=== PATIENT | female | born 1980 | race Caucasian/White ===

== ENCOUNTER → 2018-08-30 15:16 | Outpatient (CLI) | payer OTHER, SELFPAY ==
[2018-08-30 15:52] LABS: Add Manual Diff / Slide Review NO; Basophils Absolute Auto 100 /uL (0-100); Eosinophils Absolute Auto 100 /uL (0-450); Eosinophils Percent Auto 1.1 % (2-4); Hematocrit 35.4 % (41-53); Hemoglobin 11.4 g/dL (13.5-17.5); Lymphocytes Absolute Auto 2500 /uL (1100-4500); Lymphocytes Percent Auto 22.5 % (25-40); Mean Corpuscular HGB Conc 32.3 % (30-36); Mean Corpuscular Hemoglobin 25.6 PG (26-34); Mean Corpuscular Volume 79.3 fL (80-100); Monocytes Absolute Auto 300 /uL (0-900); Monocytes Percent Auto 2.6 % (3-14); Neutrophils Absolute Auto 8100 /uL (1500-7000); Neutrophils Percent Auto 72.8 % (50-75); Platelet Count 309 X10^3/uL (150-400); Red Blood Cell Count 4.47 X10^6/uL (4.5-5.9); Red Cell Distribution Width 14.5 % (11.6-14.8); White Blood Cell Count 11.2 X10^3/uL (4.5-11.0)
== END ==
PROVIDERS: PCP Family Medicine; Visit Provider Specialist
DX: N92.0 Excessive and frequent menstruation with regular cycle (principal)
CPT/HCPCS: 36415; 85025

== ENCOUNTER 2018-09-06 08:12 | Day surgery (SDC) | payer OTHER, SELFPAY ==
[2018-09-05 07:30] VITALS: BMI 41.1
[2018-09-06] VITALS (9 sets, daily range): BP systolic 113–165; BP diastolic 58–89; PULSE 43–60; RESP 11–16; TEMP 36.2–36.6; O2SAT 94–99; BMI 40.5
--- NOTE | 2018-09-06 08:45 | PM.PREOP ---
Pre-operative Note Interval Note History & Physical reviewed/Exam performed by Physician: Yes Changes to H&P: No H&P completed within 30 days and has changed as indicated here:: see outpt note 08/30/18
[2018-09-06] MEDS: LACTATED RINGERS 1,000 ML 42 ML IV (08:47)
--- NOTE | 2018-09-06 09:05 | SUR.OPER ---
Lithotomy on padded OR bed, head on pillow, arms secured on padded arm boards at <90 degrees abduction. Legs secured in padded yellow fins stirrups.
--- NOTE | 2018-09-06 09:37 | PM.OP.1 ---
Operative Date/Time/Diagnoses Date of procedure: 09/06/18 Time of procedure: 09:37 Post-op diagnosis: same Procedure & Clinicians Procedure: NovaSure ablation Same procedure as scheduled: Yes Indications: Menorrhagia Surgeon: Candace Bee Click Yes if Unassisted: Yes Anesthesia Type: General Operative Notes Findings: Normal exam under anesthesia Closure Type: not applicable Specimen(s): none sent Estimated Blood Loss (mL): 5 Blood products transfused: none Procedure in detail: Patient was brought to the operating room where she was underwent general anesthesia was placed in the [facility] [place]. Pulsatile stockings were in place and functional. Antibiotics were not indicated. Warming was with blankets. A check system was reviewed with the staff in the room. A single-tooth tenaculum was placed on the anterior lip of the cervix. The cervix was dilated to a #6 Hegar dilator. The NovaSure sound was used to determine the length of the uterus which was over 6 cm. This was set on the NovaSure device. The device was placed in the uterus and the width determined to be 4.5 cm. The length and width were entered into the NovaSure machine. The plunger was pushed to the cervix to effect a good vacuum seal. This was documented by the machine. Cauterization was done with a total power of 149 and 80 seconds. The NovaSure array was pulled back into the device and then the device removed. Patient tolerated the procedure well. Counts of instruments and sponges were correct. Patient went to recovery room in good condition. Complications: none Condition: stable Disposition: same day surgery Plan for aftercare: Home when awake and stable
--- NOTE | 2018-09-06 09:40 | P.OP_ITS ---
Operative Date/Time/Diagnoses Date of procedure: 09/06/18 Time of procedure: 09:37 Post-op diagnosis: same Procedure & Clinicians Procedure: NovaSure ablation Same procedure as scheduled: Yes Indications: Menorrhagia Surgeon: Candace Bee Click Yes if Unassisted: Yes Anesthesia Type: General Operative Notes Findings: Normal exam under anesthesia Closure Type: not applicable Specimen(s): none sent Estimated Blood Loss (mL): 5 Blood products transfused: none Procedure in detail: Patient was brought to the operating room where she was underwent general anesthesia was placed in the [facility] [place]. Pulsatile stockings were in place and functional. Antibiotics were not indicated. Warming was with blankets. A check system was reviewed with the staff in the room. A single-tooth tenaculum was placed on the anterior lip of the cervix. The cervix was dilated to a #6 Hegar dilator. The NovaSure sound was used to determine the length of the uterus which was over 6 cm. This was set on the NovaSure device. The device was placed in the uterus and the width determined to be 4.5 cm. The length and width were entered into the NovaSure machine. The plunger was pushed to the cervix to effect a good vacuum seal. This was documented by the machine. Cauterization was done with a total power of 149 and 80 seconds. The NovaSure array was pulled back into the device and then the device removed. Patient tolerated the procedure well. Counts of instruments and sponges were correct. Patient went to recovery room in good condition. Complications: none Condition: stable Disposition: same day surgery Plan for aftercare: Home when awake and stable
[2018-09-06] MEDS: fentaNYL 100 MCG/2 ML INJ 50 MCG IV (09:44)
[2018-09-06] MEDS: OXYCODONE/ACETAMINOPHEN 5/325 TABLET 1 TAB PO (10:25)
== END 2018-09-06 10:55 | disposition home or self-care (01) ==
PROVIDERS: PCP Family Medicine; Visit Provider Specialist
PROC: 0U5B8ZZ Destruction of Endometrium, Via Natural or Artificial Opening Endoscopic (ICD-10-PCS; CPT 58563; principal; 2018-09-06 09:15)
DX: N92.0 Excessive and frequent menstruation with regular cycle (principal); E66.9 Obesity, unspecified; F32.9 Major depressive disorder, single episode, unspecified; I10 Essential (primary) hypertension; D64.9 Anemia, unspecified; Z68.41 Body mass index [BMI] 40.0-44.9, adult
CPT/HCPCS: 58353; J1100; J1885; J2250; J2405; J2704; J3010